=== PATIENT | male | born 1985 | race African-American/Black ===

== ENCOUNTER 2019-07-10 16:58 | Emergency (ER) | payer SELFPAY ==
[~2019-07-10] VITALS: Ht 172.7 cm; Wt 145.1 kg
[2019-07-10 17:06] VITALS: BP 140/75
[2019-07-10] MEDS ORDERED: MORPHINE SULFATE 4 MG/ML VIAL. IV/SQ PRN (17:30)
[2019-07-10] MEDS ORDERED: ASPIRIN 325 MG TABLET PO ONE (17:30)
[2019-07-10] MEDS ORDERED: NITROGLYCERIN SUBLINGUAL 0.4 MG BOTTLE OF 25. SL PRN (17:30)
--- NOTE | 2019-07-10 17:55 | PHYS DOC ---
Past Medical History Past Medical History: Diabetes-Type II, Hypertension Past Surgical History: No Surgical History Alcohol Use: None Drug Use: Marijuana Social History Narrative: last smoked 07/10/2019 Adult General Chief Complaint Chief Complaint: CHEST PAIN HPI HPI Patient is a 33 year old morbidly obese -[place] male patient with history of hypertension, diabetes type 2, smoking, who presents to the ED today complaining of mild substernal chest pain that began 2 days ago when he started working out. Patient states the pain is worse when he is doing for 10 exercise routines including lifting weights. Denies anything specifically relieving. Denies any nausea or vomiting. Patient denies any pain right now. Review of Systems Review of Systems Constitutional: Denies fever or chills [] Eyes: Denies change in visual acuity, redness, or eye pain [] HENT: Denies nasal congestion or sore throat [] Respiratory: Denies cough or shortness of breath [] Cardiovascular: Reports chest pain GI: Denies abdominal pain, nausea, vomiting, bloody stools or diarrhea [] : Denies dysuria or hematuria [] Musculoskeletal: Denies back pain or joint pain [] Integument: Denies rash or skin lesions [] Neurologic: Denies headache, focal weakness or sensory changes [] All other systems were reviewed and found to be within normal limits, except as documented in this note. Current Medications Current Medications Current Medications Medications (Trade) Dose Ordered Sig/[facility] Start Time Stop Time Status Last Admin Dose Admin Aspirin (Kenny Aspirin) 325 mg 1X ONCE 07/10/19 17:30 07/10/19 17:31 DC Morphine Sulfate (Morphine Sulfate) 4 mg PRN Q15MIN PRN 07/10/19 17:30 07/11/19 17:29 Nitroglycerin (Nitrostat) 0.4 mg PRN Q5MIN PRN 07/10/19 17:30 07/11/19 17:29 Allergies Allergies Allergies Coded Allergies Type Severity Reaction Last Updated Verified No Known Drug Allergies 07/10/19 No Physical Exam Physical Exam Constitutional: Morbidly obese patient, no acute distress, non-toxic appearance. [] HENT: Normocephalic, atraumatic, bilateral external ears normal, oropharynx moist, no oral exudates, nose normal. [] Eyes: PERRLA, EOMI, conjunctiva normal, no discharge. [] Neck: Normal range of motion, no tenderness, supple, no stridor. [] Cardiovascular:Heart rate regular rhythm, no murmur [] Lungs & Thorax: Bilateral breath sounds clear to auscultation [] Abdomen: Bowel sounds normal, soft, no tenderness, no masses, no pulsatile masses. [] Skin: Warm, dry, no erythema, no rash. [] Back: No tenderness, no CVA tenderness. [] Extremities: No tenderness, no cyanosis, no clubbing, ROM intact, no edema. [] Neurologic: Alert and oriented X 3, normal motor function, normal sensory funct ion, no focal deficits noted. [] Psychologic: Affect normal, judgement normal, mood normal. [] Current Patient Data Vital Signs Vital Signs Date Time Temp Pulse Resp B/P (MAP) Pulse Ox O2 Delivery O2 Flow Rate FiO2 07/10/19 17:06 98.9 97 18 140/75 (96) 97 Room Air 98.9 EKG EKG [address] Sheikh sinus rhythm Hr 99 no STEMI[] Radiology/Procedures Radiology/Procedures [] Course & Med Decision Making Course & Med Decision Making Pertinent Labs and Imaging studies reviewed. (See chart for details) This is a 33-year-old male patient presented to the ED today presenting to the ED today with complaints of chest pain that began 2 days ago after he started working out. Patient is morbidly obese, has risk factors including smoking, diabetes and HTN Cardiac workup was ordered. Patient decided to leave AMA, he states he understands all the risk involved including and disability. He signed his paperwork and left. Dragon Disclaimer Dragon Disclaimer This electronic medical record was generated, in whole or in part, using a voice recognition dictation system. The HEART Score for CP Pts HEART Score for Chest Pain: HEART Score for Chest Pain Response (Comments) Value History Slighlty/Non-Suspicious 0 ECG Normal 0 Age < 45 0 Risk Factors >3 Risk Factors or Hx CAD 2 Total 2 Risk Factors: Risk Factors: DM, Current or recent (<one month) smoker, HTN, HLP, family history of CAD, obesity. Risk Scores: Score 0 - 3: 2.5% MACE over next 6 weeks - Discharge Home Score 4 - 6: 20.3% MACE over next 6 weeks - Admit for Clinical Observation Score 7 - 10: 72.7% MACE over next 6 weeks - Early Invasive Strategies Departure Departure Impression: Primary Impression: Chest pain Disposition: 07 AGAINST MEDICAL ADVICE Condition: STABLE Referrals: NO PCP (PCP) Problem Qualifiers Primary Impression: Chest pain Chest pain type: unspecified Qualified Codes: R07.9 - Chest pain, unspecified MARGI LIM SEARCH MANAGER Jul 10, 2019 17:55
--- NOTE | 2019-07-10 18:07 | RAD ---
Study: PORTABLE CHEST 1V Indication: Chest pain. Comparison: None. Findings: The lung ram are clear. No pneumothorax or layering effusion. The cardiomediastinal silhouette is within normal limits given technique. No free air seen under the diaphragm. Impression: No acute radiographic abnormality of the chest. Electronically signed by: MURTAZA CARBALLO MD (07/10/2019 6:04 PM) [facility]
--- NOTE | 2019-07-11 10:45 | EKG ---
[facility] [address] [place] [address] Test Date: 2019-07-10 Test Time: 17:02:54 Pat Name: ADAM PARISI Department: Room: Gender: Access Assoc: LUCI : 1985 Requested By: MARGI LIM Order Number: [id number] Reading MD: Measurements Intervals [place] Rate: 99 P: 47 LA: 176 QRS: -16 QRSD: 84 T: 10 QT: 346 QTc: 449 Interpretive Statements SINUS RHYTHM LEFTWARD AXIS NO SPECIFIC ECG ABNORMALITIES RI6.01 No previous ECG available for comparison
== END 2019-07-10 17:40 | disposition left against medical advice (07) ==
LOC: ER 16:58
DX: R07.89 Other chest pain (principal); I10 Essential (primary) hypertension; E11.9 Type 2 diabetes mellitus without complications
CPT/HCPCS: 71045; 93005; 99284-25; 99285-25